=== PATIENT | female | born 1945 | race Caucasian/White ===

== ENCOUNTER → 2024-11-30 11:24 | Outpatient (REF) | payer OTHER, SELFPAY | LOC: HWRAD 11:24 | PROVIDERS: ATTENDING PHYSICIAN Orthopaedic Surgery Hand Surgery; FAMILY PHYSICIAN Family Medicine; REFERRING PHYSICIAN Internal Medicine | DX: M05.712 Rheumatoid arthritis with rheumatoid factor of left shoulder without organ or systems involvement (principal) | CPT/HCPCS: 73200 ==